=== PATIENT | male | born 1965 | race Caucasian/White ===

== ENCOUNTER 2020-07-26 12:30 | Outpatient (RCR) | payer BC, SELFPAY ==
--- NOTE | 2020-03-07 17:26 | ST.OPIE ---
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 Per medical records, the pt was hospitalized from October 27 ? Nov 15, originally for a bilateral total knee arthroplasty; however, during recovery he experienced a stroke and hospitalization was extended. It appeared this was a watershed infarct d/t severe intracranial vascular disease exacerbated by perioperative swings and perfusion pressure. He d/c?d to SNF for rehab prior to returning home. Consequences of stroke included emotional lability, and referring MD suspects reduced attention and poor motivation. The pt was referred for Neuropsychological testing for thorough evaluation of cognitive impact and to Speech Therapy for evaluation and treatment of cognitive linguistic deficits. 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 The pt was primary historian and noted that since the stroke, he is more emotionally labile and was observed to suddenly and briefly cry intermittently during the evaluation. Additionally, he reported feeling slower in doing things , although he is participating in many household tasks, and he is more sensitive to cold temperatures than prior to stroke. He reported having completed neurocognitive testing with Dr. Bae in [place] and scoring above average in all tests. The pt's , Anuradha, noted that he is more easily agitated and often sounds angry when talking to his family, and she perceives reduced attention to details and questionable problem- solving skills and executive functions. The pt felt his problem-solving skills were at or near baseline, based on an example his provided. He also acknowledged that his speech and voice sound harsh when speaking to his family ( and 2 kids, ages 8 and 11), although he does not feel irritated or angry at the time. Regarding POC, the couple inquired if telehealth was an option for therapy. Due to logistics of travel from [place], they are able to manage in-person visits 2x/ mo only but were hoping to have 2 additional telehealth appts so the pt could receive weekly treatment. Pt/spouse informed telehealth is not available at this time. Mental Status Alert,Responsive,Cooperative Assessment Oral Motor Examination Completed No Informal Assessment Receptive Language Normal Yes Expressive Language Normal Yes Pragmatic Language Normal Yes Speech Normal Yes Cognition Normal No: See Formal Assessment Formal Assessment Standardized Test/Screener Type Cognitive Linguistic Quick Test (CLQT) Administration Complete Results Composite Severity Rating: Moderate Impairment Attention: Moderate Memory: Moderate Executive Functions: Severe Language: WNL Visuospatial Skills: Moderate Clock Drawing: WNL Non-Linguistic Cognition: Severe Linguistic/Aphasia: Mild The pt worked very quickly through all tasks. He acknowledged several mistakes but did not attempt to correct, with exception of symbols trail; attempted corrections were also incorrect. He worked with an organized approach to the symbols cancellation task (top -bottom, right-left, and checked work when done) but targeted 2 symbols. See file for additional details of performance. Findings/Results Language Function Within normal limits Cognitive Function Moderately impaired Findings The pt presents with speech and language function WNL. He presents with moderate impairment of cognitive communication skills in areas of attention, memory and visuospatial skills and severe impairment of executive functions. Cognitive Communication Deficits Self-awareness of Cognitive- Situational awareness ( Communication Deficits recognition of problem in context;in real time) Impact on Functioning Activity Limits/Particip.Rest. Mild: General Tasks and Demands Household Tasks Community Mod: Interpersonal Interactions Sev: Employment Safety Risks Mild: Being Left Alone at Home Mod: Reacting to Emergency Managing Medication Traveling Alone in Community Prognosis Prognosis Good Based on Cognitive status,Family support,Comorbidities,Duration of symptoms/severity,Time since onset Plan of Care Speech-Language Treatment Yes Frequency 2x/mo transitioning to 1x/wk if telehealth becomes an option Duration 4 mos Patient/Caregiver Education Described results of evaluation,Patient expressed understanding of evaluation, Patient expressed agreement with goals and treatment plans ,Family/caregivers expressed understanding of evaluation, Family/caregivers expressed agreement with goals and treatment plan,Patient requires further education/ training,Family/caregivers require further education/ training Short Term Goals Per Person-Centered Care model, functional goals to be determined in collaboration with the pt and his family. Goals to target: 1. Improved attention, memory, executive function and visuospatial skills necessary for the pt to increase/ maintain independence, complete personal/family responsibilities, and return to work; 2. Communication skills related to emotional lability to maintain relationships; 3. Pt/Family education related to stroke and stroke recovery. Fpc Goals 1. The pt will demonstrate cognitive communication skills necessary to increase/ maintain independence, complete personal/family responsibilities, and return to work, as measured by pt/ family report and clinician judgment. 2. Using communication strategies with min assist from family as needed, the pt will demonstrate pragmatic language skills WFL to maintain relationships, as measured by pt/family report and clinician judgment.
--- NOTE | 2020-03-07 17:34 | ST.OPIE ---
Visit Care Team Role Provider Type Nader Flowers MD Attending Provider Non-Staff Primary Care Provider Referring Provider Specialty: Medical Address: [address] [place] [address], [place], [place], 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 Per medical records, the pt was hospitalized from October 27 ? Nov 15, originally for a bilateral total knee arthroplasty; however, during recovery he experienced a stroke and hospitalization was extended. It appeared this was a watershed infarct d/t severe intracranial vascular disease exacerbated by perioperative swings and perfusion pressure. He d/c?d to SNF for rehab prior to returning home. Consequences of stroke included emotional lability, and referring MD suspects reduced attention and poor motivation. The pt has been referred for Neuropsychological testing for thorough evaluation of cognitive impact and to Speech Therapy for evaluation and treatment of cognitive linguistic deficits. 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 The pt was primary historian and noted that since the stroke, he is more emotionally labile and was observed to suddenly and briefly cry intermittently during the evaluation. Additionally, he reported feeling slower in doing things , although he is participating in many household tasks, and he is more sensitive to cold temperatures than prior to stroke. He reported having completed neurocognitive testing with Dr. Bae in [place] and scoring above average in all tests. The pt's , Anuradha, noted that he is more easily agitated and often sounds angry when talking to his family, and she perceives reduced attention to details and questionable problem- solving skills and executive functions. The pt felt his problem-solving skills were at or near baseline, based on an example his provided. He also acknowledged that his speech and voice sound harsh when speaking to his family ( and 2 kids, ages 8 and 11 ), although he does not feel irritated or angry at the time . Regarding POC, the couple inquired if telehealth was an option for therapy. Due to logistics of travel from [place], they are able to manage in-person visits 2x/ mo only but were hoping to have 2 additional telehealth appts so the pt could receive weekly treatment. Pt/spouse informed telehealth is not available at this time. Mental Status Alert,Responsive,Cooperative Assessment Oral Motor Examination Completed No Informal Assessment Receptive Language Normal Yes Expressive Language Normal Yes Pragmatic Language Normal Yes Speech Normal Yes Cognition Normal No: See Formal Assessment Formal Assessment Standardized Test/Screener Type Cognitive Linguistic Quick Test (CLQT) Administration Complete Results Composite Severity Rating: Moderate Impairment Attention: Moderate Memory: Moderate Executive Functions: Severe Language: WNL Visuospatial Skills: Moderate Clock Drawing: WNL Non-Linguistic Cognition: Severe Linguistic/Aphasia: Mild The pt worked very quickly through all tasks. He acknowledged several mistakes but did not attempt to correct, with exception of symbols trail; attempted corrections were also incorrect. He worked with an organized approach to the symbols cancellation task (top -bottom, right-left, and checked work when done) but targetd 2 symbols. See file for additional details of performance. Findings/Results Language Function Within normal limits Cognitive Function Moderately impaired Findings The pt presents with speech and language function WNL. He presents with moderate impairment of cognitive communication skills in areas of attention, memory and visuospatial skills and severe impairment of executive functions. In addition to Speech Therapy, the pt may benefit from referral to Vocational Rehabilitation to expedite recovery of skills necessary to return to work. Cognitive Communication Deficits Self-awareness of Cognitive- Situational awareness ( Communication Deficits recognition of problem in context;in real time) Impact on Functioning Activity Limits/Particip.Rest. Mild: General Tasks and Demands Household Tasks Community Mod: Interpersonal Interactions Sev: Employment Safety Risks Mild: Being Left Alone at Home Mod: Reacting to Emergency Managing Medication Traveling Alone in Community Prognosis Prognosis Good Based on Cognitive status,Family support,Comorbidities,Duration of symptoms/severity,Time since onset Plan of Care Speech-Language Treatment Yes Frequency 2x/mo transitioning to 1x/wk if telehealth becomes an option Duration 4 mos Patient/Caregiver Education Described results of evaluation,Patient expressed understanding of evaluation, Patient expressed agreement with goals and treatment plans ,Family/caregivers expressed understanding of evaluation, Family/caregivers expressed agreement with goals and treatment plan,Patient requires further education/ training,Family/caregivers require further education/ training Short Term Goals Per Person-Centered Care model , functional goals to be determined in collaboration with the pt and his family. Goals to target: 1. Improved attention, memory, executive function and visuospatial skills necessary for the pt to increase/ maintain independence, complete personal/family responsibilities, and return to work; 2. Communication skills related to emotional lability to maintain relationships; 3. Pt/Family education related to stroke and stroke recovery . Security Expert Goals 1. The pt will demonstrate cognitive communication skills necessary to increase/ maintain independence, complete personal/family responsibilities, and return to work, as measured by pt/ family report and clinician judgment. 2. Using communication strategies with min assist from family as needed, the pt will demonstrate pragmatic language skills WFL to maintain relationships, as measured by pt/family report and clinician judgment.
--- NOTE | 2020-05-09 16:28 | ST.OPRE ---
Visit Care Team Role Provider Type Nader Flowers MD Attending Provider Non-Staff Primary Care Provider Referring Provider Specialty: Medical Address: [address] [place] [address], [place], [place], [facility] Email: Speech-Language Pathology Evaluation/Summary MOVEMENT ASSEMBLER Treatment Note Start: 03/06/20 09:44 Freq: Status: Active Protocol: Document 05/09/20 16:04 MACARENA (Rec: 05/09/20 16:27 MACARENA [email or web address]) Speech Pathology Treatment Note Session Time Visit Start Time 15:45 Visit Stop Time 16:20 Total Visit Minutes 35 Visit Information Visit Number 1 Plan of Care Dates 05/09/20 - 08/06/20 Insurance Information [employer] Out of [facility] Setting Treatment Setting Outpatient Care Visit Type Note Type Re-Evaluation Next Note Type Next Note Type Treatment Note General Information General Information The pt is a 54-yr-old male s/p 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 Per medical records, the pt was hospitalized from October 27 ? Nov 15, originally for a bilateral total knee arthroplasty; however, during recovery he experienced a stroke and hospitalization was extended. It appeared this was a watershed infarct d/t severe intracranial vascular disease exacerbated by perioperative swings and perfusion pressure. He d/c?d to SNF for rehab prior to returning home. Consequences of stroke included emotional lability, and referring MD suspects reduced attention and poor motivation. The pt has been referred for Neuropsychological testing for thorough evaluation of cognitive impact and to Speech Therapy for evaluation and treatment of cognitive linguistic deficits. Subjective Observations/Patient Presentation The pt returned for first treatment visit since initial evaluation 03/06/21. Delay in treatment was secondary to COVID-19 related issues, including home schedule and logistic complications in attending from [facility] . The pt reported improved physical mobility secondary to receiving consistent Physical Therapy. He also reported having resumed many home responsibilities. [employer] has restricted his return to work until 1 year after the stroke, although the pt stated he felt as if he could successfully return and complete his duties. He did report and exhibit ongoing abrupt emotional lability, particularly when speaking about positive aspects of his recovery and his family. He expressed frustration with this and also noted that he can become easily fatigued during tasks involving intense cognitive load, such as reading (occurs after ~1 page). Chief Complaint(s) Cognitive Patient Knowledge/Awareness of MOVEMENT ASSEMBLER Role Good in Treatment Objective Short Term Goals Per Person-Centered Care model , functional goals to be determined in collaboration with the pt and his family. Goals to target: 1. Improved attention, memory, executive function and visuospatial skills necessary for the pt to increase/ maintain independence, complete personal/family responsibilities, and return to work; 2. Communication skills related to emotional lability to maintain relationships; 3. Pt/Family education related to stroke and stroke recovery . Skilled Nursing Goals 1. The pt will demonstrate cognitive communication skills necessary to increase/ maintain independence, complete personal/family responsibilities, and return to work, as measured by pt/ family report and clinician judgment. 2. Using communication strategies with min assist from family as needed, the pt will demonstrate pragmatic language skills WFL to maintain relationships, as measured by pt/family report and clinician judgment. Treatment Activities Consulted with pt RE updates case history and status of language and cognitive skills. Educated pt on results of initial evaluation and administered SLUMS Examination for re-evaluation of skills. Results: (mild neurocognitive disorder) with errors in misinterpretation of 1 detail each in math problem and story comprehension; reversal of 4-digit number span, and delayed recall of 3/ 5 listed items. Educated pt of these results and initiated collaborative functional goal planning. Goal planning worksheet was provided to guide pt/spouse in identifying desired targets for treatment. Assessment Patient Response to Treatment Good Rehab Potential Excellent Impairments Identified Cognitive-Linguistic Skills Assessment of Improvement The pt continues with mild neurocognitive disorder. He appears to be making good progress at returning to independence with functional tasks at home and in the community. He continues to demonstrate abrupt emotional lability, having 5 episodes during today's session, and reports cognitive fatigue. Given his age, time since onset, recovery made since onset, personal motivation to improve, and strong family support, the pt is an excellent candidate for skilled intervention, which is medically necessary for him to return to PLOF and to work. Reviewed with Patient Goals,Progress Being Made,Home Exercise Program Patient/Caregiver Understanding Excellent Plan Comment Once every 2 wks for 6 mos Length of Session 45 Minutes Treatment Emphasis Next Session Development of functional goals; initiation of treatment Therapeutic Contents Client Education,Cognitive- Linguistic Training,Home Exercise Program Provided Patient/Caregiver Instruction Plan of Care,Questions/ Concerns Therapy Recommendations Continue with Current Program
--- NOTE | 2020-05-24 17:05 | ST.OPTN ---
Visit Care Team Role Provider Type Nader Flowers MD Attending Provider Non-Staff Primary Care Provider Referring Provider Address: [address] [place] [address], [place], [place], [facility] BALE BREAKER OPERATOR Treatment Note BALE BREAKER OPERATOR Treatment Note Start: 03/06/20 09:44 Freq: Status: Active Protocol: Document 05/24/20 16:35 MACARENA (Rec: 05/24/20 17:05 MACARENA [email or web address]) Speech Pathology Treatment Note Session Time Visit Start Time 15:40 Visit Stop Time 16:25 Total Visit Minutes 45 Visit Information Visit Number 2 Plan of Care Dates 05/09/20 - 08/06/20 Insurance Information BCBS Out of [facility] Setting Treatment Setting Outpatient Care Visit Type Note Type Re-Evaluation Next Note Type Next Note Type Treatment Note General Information General Information The pt is a 54-yr-old male s/p 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 Per medical records, the pt was hospitalized from October 27 ? Nov 15, originally for a bilateral total knee arthroplasty; however, during recovery he experienced a stroke and hospitalization was extended. It appeared this was a watershed infarct d/t severe intracranial vascular disease exacerbated by perioperative swings and perfusion pressure. He d/c?d to SNF for rehab prior to returning home. Consequences of stroke included emotional lability, and referring MD suspects reduced attention and poor motivation. The pt has been referred for Neuropsychological testing for thorough evaluation of cognitive impact and to Speech Therapy for evaluation and treatment of cognitive linguistic deficits. Subjective Observations/Patient Presentation The pt arrived on time. No new complaints. Is trying to make decisions about income, possible disability benefits or part-time work. 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 Chief Complaint(s) Cognitive Patient Knowledge/Awareness of BALE BREAKER OPERATOR Role Good in Treatment Objective Short Term Goals Per Person-Centered Care model , functional goals to be determined in collaboration with the pt and his family. Goals to target: 1. Improved attention, memory, executive function and visuospatial skills necessary for the pt to increase/ maintain independence, complete personal/family responsibilities, and return to work; 2. Communication skills related to emotional lability to maintain relationships; 3. Pt/Family education related to stroke and stroke recovery . Nursing Home Goals 1. The pt will demonstrate cognitive communication skills necessary to increase/ maintain independence, complete personal/family responsibilities, and return to work, as measured by pt/ family report and clinician judgment. 2. Using communication strategies with min assist from family as needed, the pt will demonstrate pragmatic language skills WFL to maintain relationships, as measured by pt/family report and clinician judgment. Treatment Activities Discussed emotional lability with pt. He continues with intermittent episodes that occur unexpectedly, though he feels they have reduced in frequency. Provided stress ball of the pt to hold during session with instruction to squeeze it should he become emotional during the session. This is an attempt to distract the mind from emotional response and minimize occurrence of duration of episode. The pt exhibited 2 episodes of momentary tearfulness, which passed quickly. Pt felt the stress ball was helpful. Consulted with pt RE potential return to work and home projects responsibilities. Pt identified time management and endurance with reading to be areas of expected challenge. Initiated training in Goal- [id number] task/time management tools and PRQST reading strategies. Education and instruction provided. Pt verbalized understanding and related both strategies to similar strategies he has used in past for work related tasks, demonstrating good understanding. Pt agreed to use with functional projects and reading material over next 2 wks and return with results to discuss at next session. Assessment Patient Response to Treatment Good Rehab Potential Excellent Impairments Identified Cognitive-Linguistic Skills Progress Towards Goals Good Progress Assessment of Overall Progress Improving Assessment of Improvement The pt was highly responsive to collaborative POC planning, education and training. His ability to relate target techniques to strategies he has used in past demonstrates good understanding and such familiarity is expected to lead to good outcomes. While he exhibited 2 episodes of emotional lability, this is reduced from past sessions and their duration was shorter , indicating progress in this area as well. Physical/mental distractors may be helpful strategies to minimize these experiences. Reviewed with Patient Goals,Progress Being Made,Home Exercise Program Patient/Caregiver Understanding Excellent Plan Comment Once every 2 wks for 6 mos Length of Session 45 Minutes Treatment Emphasis Next Session GPDR, PQRST strategies follow- up and cont training. Therapeutic Contents Client Education,Cognitive- Linguistic Training,Home Exercise Program Provided Patient/Caregiver Instruction Home Exercise Program,Plan of Care,Questions/Concerns Therapy Recommendations Continue with Current Program
--- NOTE | 2020-06-07 15:14 | ST.OPTN ---
Visit Care Team Role Provider Type Nader Flowers MD Attending Provider Non-Staff Primary Care Provider Referring Provider Address: [address] [place] [address], [place], [place], [facility] BUILDINGS AND GROUNDS DIRECTOR Treatment Note BUILDINGS AND GROUNDS DIRECTOR Treatment Note Start: 03/06/20 09:44 Freq: Status: Active Protocol: Document 06/07/20 12:11 MACARENA (Rec: 06/07/20 12:27 MACARENA [email or web address]) Speech Pathology Treatment Note Session Time Visit Start Time 15:40 Visit Stop Time 16:25 Total Visit Minutes 45 Visit Information Visit Number 3 Plan of Care Dates 05/09/20 - 08/06/20 Insurance Information BCBS Out of [facility] Setting Treatment Setting Outpatient Care Visit Type Note Type Re-Evaluation Next Note Type Next Note Type Treatment Note General Information General Information The pt is a 54-yr-old male s/p 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 Per medical records, the pt was hospitalized from October 27 ? Nov 15, originally for a bilateral total knee arthroplasty; however, during recovery he experienced a stroke and hospitalization was extended. It appeared this was a watershed infarct d/t severe intracranial vascular disease exacerbated by perioperative swings and perfusion pressure. He d/c?d to SNF for rehab prior to returning home. Consequences of stroke included emotional lability, and referring MD suspects reduced attention and poor motivation. The pt has been referred for Neuropsychological testing for thorough evaluation of cognitive impact and to Speech Therapy for evaluation and treatment of cognitive linguistic deficits. Subjective Observations/Patient Presentation The pt arrived on time. No new complaints. He brought with him a completed GPDR worksheet that he used with a home project. 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 Chief Complaint(s) Cognitive Patient Knowledge/Awareness of BUILDINGS AND GROUNDS DIRECTOR Role Good in Treatment Objective Short Term Goals Per Person-Centered Care model , functional goals to be determined in collaboration with the pt and his family. Goals to target: 1. Improved attention, memory, executive function and visuospatial skills necessary for the pt to increase/ maintain independence, complete personal/family responsibilities, and return to work; 2. Communication skills related to emotional lability to maintain relationships; 3. Pt/Family education related to stroke and stroke recovery . [facility] Goals 1. The pt will demonstrate cognitive communication skills necessary to increase/ maintain independence, complete personal/family responsibilities, and return to work, as measured by pt/ family report and clinician judgment. 2. Using communication strategies with min assist from family as needed, the pt will demonstrate pragmatic language skills WFL to maintain relationships, as measured by pt/family report and clinician judgment. Treatment Activities Assessed and discussed pt's completed GPDR form that targeted fixing the washing machine. The pt completed the form appropriately, although he reported doing so after completing the task. The task took longer than he anticipated, and he had thoughtful and appropriate reflections on what was challenging, what went well, and what he would change if he were to do the task again. Discussed possible similar jobs that the pt may do for friends/neighbors. Pt identified tools he felt would be helpful, including a form he has used in past work that is similar to the GPDR template. On paper, he outlined the form and stated he would be able to create this independently on his home computer, which is recommended. With prompts, the pt identified (orally and in writing) areas of anticipated challenge, including time management, becoming overwhelmed or mentally fatigued, and overworking on a task. Instructed pt to journal advice he would give his future self to manage these challenges. He independently identified strategies to manage each of these areas, including incorporating breaks into his schedule, being honest in letting homeowners know his needs and their impact to the tasks, and paying attention to physical and other indicators that he may be overworking. Skilled feedback was provided, including strategies for breaking tasks and paperwork into smaller chunks in order to decrease senses of overwhelm and to pace the pt's activities to reduce fatigue. He was in agreement and included these ideas into his written list, which he titled Me Taking My Advice. Given hypothetical work scenarios involving potential conflicts and disruptions to work plans, the pt explained how he would problem solve and communicate with clients in such situations. All language was appropriate, both in relation to clear communication and also pragmatics/maintaining relationships. The pt again demonstrated frequent episodes of emotional lability, which presented at outbursts of crying typically when discussing topics that were highly personal (e.g., family, pet, personal achievements, etc.). Skilled education and feedback was provided within the BUILDINGS AND GROUNDS DIRECTOR's scope of knowledge and practice. BUILDINGS AND GROUNDS DIRECTOR agreed to research the topic and communicated with one of the Hospital's Psychologists for direction and possible collaboration. The pt expressed interest in understanding this more and developing tools for better management. He did report some benefit from squeezing a stress ball, but doing so over the course of this treatment session did not appear to minimize episodes. Assessment Patient Response to Treatment Excellent Rehab Potential Excellent Impairments Identified Cognitive-Linguistic Skills Progress Towards Goals Excellent Progress,Good Progress Assessment of Overall Progress Improving Assessment of Improvement The pt is making excellent progress toward goals, engaging in many activities at home and beginning to re- engage with the community and demonstrating good memory, problem solving, and executive function skills. Prior to the stroke, the pt followed very structured project planning and time management systems, which he is able to recall and explain in detail. He shows good insight into deficits and is able to identify potential challenges and offer appropriate solutions. Today he was able to think through and problem solve potential work related conflicts and communicate effectively about them. Emotional lability continues. Will provide education to pt and collaborate with Psychiatry Dept to address these needs. Reviewed with Patient Goals,Progress Being Made,Home Exercise Program Patient/Caregiver Understanding Excellent Plan Comment Once every 2 wks for 6 mos Length of Session 45 Minutes Treatment Emphasis Next Session Emotional lability education; time management Therapeutic Contents Client Education,Cognitive- Linguistic Training,Home Exercise Program Provided Patient/Caregiver Instruction Home Exercise Program,Plan of Care,Questions/Concerns Therapy Recommendations Continue with Current Program
--- NOTE | 2020-07-26 13:25 | ST.OPTN ---
Visit Care Team Role Provider Type Nader Flowers MD Attending Provider Non-Staff Primary Care Provider Referring Provider Address: [address] [place] [address], [place], [place], [facility] MECHANIC FOREMAN Treatment Note MECHANIC FOREMAN Treatment Note Start: 03/06/20 09:44 Freq: Status: Active Protocol: Document 07/26/20 17:15 MACARENA (Rec: 07/26/20 17:15 MACARENA [email or web address]) Speech Pathology Treatment Note Session Time Visit Start Time 12:30 Visit Stop Time 13:15 Total Visit Minutes 45 Visit Information Visit Number 4 Plan of Care Dates 05/09/20 - 08/06/20 Insurance Information BCBS Out of [facility] Setting Treatment Setting Outpatient Care Visit Type Note Type Re-Evaluation Next Note Type Next Note Type Progress Note General Information General Information The pt is a 54-yr-old male s/p 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 Per medical records, the pt was hospitalized from October 27 ? Nov 15, originally for a bilateral total knee arthroplasty; however, during recovery he experienced a stroke and hospitalization was extended. It appeared this was a watershed infarct d/t severe intracranial vascular disease exacerbated by perioperative swings and perfusion pressure. He d/c?d to SNF for rehab prior to returning home. Consequences of stroke included emotional lability, and referring MD suspects reduced attention and poor motivation. The pt has been referred for Neuropsychological testing for thorough evaluation of cognitive impact and to Speech Therapy for evaluation and treatment of cognitive linguistic deficits. Subjective Observations/Patient Presentation The pt arrived on time. No new complaints. 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 Reports emotional lability is decreasing, only appearing occasionally. Was able to talk to a friend for 20 minutes without an episode, when he was actually anticipating it would occur during the conversation. Chief Complaint(s) Cognitive Patient Knowledge/Awareness of MECHANIC FOREMAN Role Good in Treatment Objective Short Term Goals Per Person-Centered Care model , functional goals to be determined in collaboration with the pt and his family. Goals to target: 1. Improved attention, memory, executive function and visuospatial skills necessary for the pt to increase/ maintain independence, complete personal/family responsibilities, and return to work; 2. Communication skills related to emotional lability to maintain relationships; 3. Pt/Family education related to stroke and stroke recovery . Nuclear Medicine Tech Goals 1. The pt will demonstrate cognitive communication skills necessary to increase/ maintain independence, complete personal/family responsibilities, and return to work, as measured by pt/ family report and clinician judgment. 2. Using communication strategies with min assist from family as needed, the pt will demonstrate pragmatic language skills WFL to maintain relationships, as measured by pt/family report and clinician judgment. Treatment Activities Provided education in writing RE Pseudobulbar affect (i.e., emotional lability) and related strategies. Pt expressed appreciation of this and identified use of deep breathing and changing topics as distractors that seem to reduce frequency/duration of episodes of lability. Over the course of the session, the pt did exhibit 6 episodes, which he expressed mild frustration over. Suspect this resulted simply from talking about the issue, as this dissipated when the topic was changed. This feedback was given to the pt, who agreed. Reviewed goals of treatment, specifically pragmatic communication skills. The pt stated he has always been blunt, but my tells me that now I am sometimes rude to people. He stated that he tries to teach his children to think before they talk, which was a nice transition into training the pt in using the acronym THINK: Is it True, Helpful, Inspiring, Necessary , and Kind? Recommended the pt using fingers on his hand as visual prompts. Discussed these qualities being conveyed not only in word choices, but also in tone and attitude when speaking to people. The pt expressed interest in and appreciation for this tool, stating that he would educate his children in it, as well, and they could work as a family on how they speak to each other and other people. MECHANIC FOREMAN strongly supported this plan. Educated and trained pt in use of the cognitive training apps Zakada and Brain TonZof. the pt completed attention tasks (Train of Thought, 80% acc) and auditory comprehension/recall (To-Do List Training, 70% acc). Recommend pt complete tasks from one or both of these apps daily to continue to promote neuroplasticity and increase skills in areas of memory, attention, and problem solving . Pt was in agreement. Assessment Patient Response to Treatment Excellent Rehab Potential Excellent Impairments Identified Cognitive-Linguistic Skills Progress Towards Goals Excellent Progress,Good Progress Assessment of Overall Progress Improving Assessment of Improvement The pt is making excellent progress toward goals, increasing independence and anticipating returning to work soon. He is meeting his daily personal and family responsibilities. He continues with occasional emotional lability, which is dissipating and aided by use of distraction strategies. He also continues with occasional pragmatic communication deficits in being rude (per ) to people in the bluntness of his language. He was highly receptive to the use of the THINK acronym to monitor and control his verbal interactions with others. Needs reinforcement. Would be great for his family to engage with him on this, as added support. He also was highly receptive to using Zakada and Brain HQ cognitive training apps for continued exercise. Reviewed with Patient Goals,Progress Being Made,Home Exercise Program Patient/Caregiver Understanding Excellent Plan Comment Once every 2 wks for 6 mos Length of Session 45 Minutes Treatment Emphasis Next Session Pragmatic language, cognitive training apps Therapeutic Contents Client Education,Cognitive- Linguistic Training,Home Exercise Program Provided Patient/Caregiver Instruction Home Exercise Program,Plan of Care,Questions/Concerns Therapy Recommendations Continue with Current Program
--- NOTE | 2020-09-18 16:14 | ST.OPDS ---
Visit Care Team Role Provider Type Nader Flowers MD Attending Provider Non-Staff Primary Care Provider Referring Provider Address: [address] [place] [address], [place], [address] TOP LIFT CUTTER Treatment Note TOP LIFT CUTTER Treatment Note Start: 03/06/20 09:44 Freq: Status: Active Protocol: Document 09/18/20 16:10 MACARENA (Rec: 09/18/20 16:14 MACARENA [email or web address]) Speech Pathology Treatment Note Visit Information Plan of Care Dates 05/09/20 - 08/06/20 Insurance Information [facility] Out of [facility] Treatment Setting Outpatient Care Visit Type Note Type Discharge Summary General Information General Information The pt is a 54-yr-old male s/p 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 Per medical records, the pt was hospitalized from October 27 ? Nov 15, originally for a bilateral total knee arthroplasty; however, during recovery he experienced a stroke and hospitalization was extended. It appeared this was a watershed infarct d/t severe intracranial vascular disease exacerbated by perioperative swings and perfusion pressure. He d/c?d to SNF for rehab prior to returning home. Consequences of stroke included emotional lability, and referring MD suspects reduced attention and poor motivation. The pt has been referred for Neuropsychological testing for thorough evaluation of cognitive impact and to Speech Therapy for evaluation and treatment of cognitive linguistic deficits. Subjective Observations/Patient Presentation Pt did not attend last session . TOP LIFT CUTTER spoke with his today. reported the pt wishes to d/c from skilled intervention because of logistics. Feels that travel from [place] to [place] is too taxing. Chief Complaint(s) Cognitive Objective Short Term Goals PT MADE EXCELLENT PROGRESS TOWARD ALL GOALS. OBJECTIVE MEASUREMENTS NOT MADE AT TIME OF DISCHARGE. Per Person-Centered Care model , functional goals to be determined in collaboration with the pt and his family. Goals to target: 1. Improved attention, memory, executive function and visuospatial skills necessary for the pt to increase/ maintain independence, complete personal/family responsibilities, and return to work; 2. Communication skills related to emotional lability to maintain relationships; 3. Pt/Family education related to stroke and stroke recovery . Floatlight Powder Mixer Goals 1. The pt will demonstrate cognitive communication skills necessary to increase/ maintain independence, complete personal/family responsibilities, and return to work, as measured by pt/ family report and clinician judgment. 2. Using communication strategies with min assist from family as needed, the pt will demonstrate pragmatic language skills WFL to maintain relationships, as measured by pt/family report and clinician judgment. Assessment Assessment of Overall Progress Improving Assessment of Improvement Assessment from last appt (): The pt is making excellent progress toward goals, increasing independence and anticipating returning to work soon. He is meeting his daily personal and family responsibilities. He continues with occasional emotional lability, which is dissipating and aided by use of distraction strategies. He also continues with occasional pragmatic communication deficits in being rude (per ) to people in the bluntness of his language. He was highly receptive to the use of the THINK acronym to monitor and control his verbal interactions with others. Needs reinforcement. Would be great for his family to engage with him on this, as added support. He also was highly receptive to using Lumosity and Brain HQ cognitive training apps for continued exercise. Plan Therapy Recommendations Discharge from Speech Therapy
== END 2020-09-19 09:24 | disposition home or self-care (01) ==
LOC: SP 12:30
PROVIDERS: PCP Student in an Organized Health Care Education/Training Program; Referring Provider Student in an Organized Health Care Education/Training Program; Visit Provider Student in an Organized Health Care Education/Training Program
DX: I63.89 Other cerebral infarction (principal)
CPT/HCPCS: 92507; 92523